=== PATIENT | female | born 1955 | race Caucasian/White ===

== ENCOUNTER 2018-09-23 14:19 | Observation (INO) ==
--- NOTE | 2018-09-23 14:48 | ED ---
HPI General Chief Complaint: Chest Pain Stated Complaint: chest pain Time Seen by Provider: 09/23/18 14:37 Source: patient Mode of arrival: ambulatory Limitations: no limitations History of Present Illness HPI narrative: Patient comes in with jaw and neck pain associated with mild pressure of 45 minutes prior to arrival. Symptoms now gone. Patient had no nausea vomiting patient had no indigestion or shortness of breath. Patient has history of hypertension. But has no significant medical problems otherwise. No significant cardiac history in family. Related Data Home Medications Medication Instructions Recorded Confirmed Singulair 09/23/18 albuterol sulfate 09/23/18 losartan 100 mg PO DAILY 09/23/18 09/23/18 oxycodone-acetaminophen [Percocet] 1 tab PO Q6H PRN 09/23/18 09/23/18 pantoprazole [Protonix] 40 mg PO BID 09/23/18 09/23/18 Allergies Allergy/AdvReac Type Severity Reaction Status Date / Time Sulfa (Sulfonamide Allergy Severe Anaphylaxis Verified 09/23/18 14:27 Antibiotics) sertraline AdvReac Mild hands Verified 09/23/18 14:27 burning, ringing in the ear, couldn't sleep Review of Systems ROS: all other systems reviewed are negative [facility] Medical History Medical History History of Díaz's esophagus (Acute) History of arthritis (Acute) History of asthma (Acute) History of chronic back pain (Acute) History of hypertension (Acute) History of scoliosis (Acute) Surgical History Surgical History History of bunionectomy of right great toe (Acute) History of cardiac cath (Acute) History of discectomy (Acute) History of hernia repair (Acute) History of kyphoplasty (Acute) History of tonsillectomy and adenoidectomy (Acute) Social History Social History Substance History: No History of Abuse Second Hand Smoke Exposure: No Smoking Status: Never smoker How Often Do You Have a Drink Containing Alcohol: Never Recent Travel in [facility] within the Last 8 Weeks: No Recent Out of Country Travel within the Last 8 Weeks: No Immunization History Tetanus Immunization: <5 Years Exam Narrative Exam Narrative: GENERAL: Alert and oriented SKIN: Focused skin assessment warm/dry. HEAD: Atraumatic. Normocephalic. EYES: Pupils equal and round. No scleral icterus. No injection or drainage. ENT: No nasal bleeding or discharge. Mucous membranes pink and moist. NECK: Trachea midline. No JVD. CARDIOVASCULAR: Regular rate and rhythm. No murmur appreciated. RESPIRATORY: No accessory muscle use. Clear to auscultation. Breath sounds equal bilaterally. GASTROINTESTINAL: Abdomen soft, non-tender, nondistended. Hepatic and splenic margins not palpable. MUSCULOSKELETAL: No obvious deformities. No clubbing. No cyanosis. No edema. Course Initial Documented Vital Signs Temperature 98.1 F 09/23/18 14:23 Pulse Rate 90 09/23/18 14:23 Respiratory Rate 20 09/23/18 14:23 Blood Pressure 180/85 H 09/23/18 14:23 Pulse Oximetry 99 09/23/18 14:23 Last Documented Vital Signs Temperature 98.1 F 09/23/18 14:23 Pulse Rate 86 09/23/18 14:48 Respiratory Rate 16 09/23/18 14:48 Blood Pressure 150/83 H 09/23/18 14:48 Pulse Oximetry 100 09/23/18 14:48 Critical Care Time Critical Care Time: Yes Total Critical Care Time: 50 Attestation: Multiple evaluate re-evaluations with no change in status. Medical Decision Making MDM Narrative Medical decision making narrative: Patient comes in with jaw and neck pressure with slight tightness of chest. Symptoms lasted for 45 minutes just prior to arrival but resolves spontaneously on presentation. Patient has no signs or symptoms at present time patient had no nausea indigestion or shortness of breath. No additional radiation. No cardiac disease but patient has been treated for hypertension. No significant family history. Medical Screen Exam Complete: Yes Emergency Medical Condition: Yes Lab Data Result diagrams: 09/23/18 14:54 09/23/18 14:54 Lab Results 09/23/18 09/23/18 09/23/18 Range/Units 14:54 14:54 14:54 CBC w Diff Slide review pending WBC 8.7 (4.0-11.0) th/mm3 RBC 4.36 (4.00-5.30) mil/mm3 Hgb 8.6 L (11.6-15.3) gm/dL Hct 28.6 L (35.0-46.0) % MCV 65.5 L (80.0-100.0) fL MCH 19.8 L (27.0-34.0) pg MCHC 30.2 L (32.0-36.0) % RDW 17.7 H (11.6-17.2) % Plt Count 377 (150-450) th/mm3 MPV 8.1 (7.0-11.0) fL Neut % (Auto) 74.8 H (16.0-70.0) % Lymph % (Auto) 19.1 (9.0-44.0) % [place] % (Auto) 2.5 (0.0-8.0) % Eos % (Auto) 3.2 (0.0-4.0) % Baso % (Auto) 0.4 (0.0-2.0) % Neut # (Auto) 6.5 (1.8-7.7) th/mm3 Lymph # (Auto) 1.7 (1.0-4.8) th/mm3 [place] # (Auto) 0.2 (0.0-0.9) th/mm3 Eos # (Auto) 0.3 (0.0-0.4) th/mm3 Baso # (Auto) 0.0 (0.0-0.2) th/mm3 WBC Differential . Diff Scan Auto diff confirmed Differential Comment . Target Cells 1+ H (None) Ovalocytes 1+ H (None) Keratocytes Occ H (None) PT 9.7 L (9.8-11.6) sec INR 1.0 Ratio APTT 27.5 (23.4-31.7) sec Sodium 140 (136-145) meq/L Potassium 4.0 (3.5-5.1) meq/L Chloride 108 H (98-107) meq/L Carbon Dioxide 24.8 (21.0-32.0) meq/L Anion Gap 7 (5-15) meq/L BUN 14 (7-18) mg/dL Creatinine 0.91 (0.50-1.00) mg/dL Estimated GFR 62 L (>89) mL/min Random Glucose 102 (74-106) mg/dL Calcium 8.3 L (8.5-10.1) mg/dL Total Bilirubin 0.2 (0.2-1.0) mg/dL AST 22 (15-37) U/L ALT 20 (10-53) U/L Alkaline Phosphatase 77 (45-117) U/L Troponin I Less than 0.02 L (0.02-0.05) ng/mL Total Protein 7.0 (6.4-8.2) g/dL Albumin 3.5 (3.4-5.0) g/dL Imaging Data Radiologist's impression: Chest X-Ray 09/23/18 14:49 CONCLUSION: Negative for an acute process Discharge Plan Discharge Disposition Patient Disposition: ED Admit(ED Internal Use Only) Discharge Condition Condition: Stable Discharge Order Discharge Orders: ED Use Only Admit Order (Routine); Ordered 09/23/18 Ordered By: Raymond Rudolph Discharge Details Discharge Comment: Chest pain chest pain rule out CAD Physicians Team ED Provider: Raymond Rudolph Primary Care Provider: Amilcar Conklin Rxs /Orders / Referrals /Forms Prescriptions: No Action oxycodone-acetaminophen [Percocet] 10-325 mg Tablet 1 tab PO Q6H PRN (Reason: Pain) RF: 0 pantoprazole [Protonix] 40 mg Tablet,Delayed Release (Dr/Ec) 40 mg PO BID RF: 0 losartan 100 mg Tablet 100 mg PO DAILY RF: 0 Singulair RF: 0 albuterol sulfate RF: 0 Discharge Instructions Patient Printed Instructions: Chest Pain (ED) Status ED Status: With Doctor
[2018-09-23 15:05] LABS: Baso % (Auto) 0.4 % (0.0-2.0); Eos # (Auto) 0.3 th/mm3 (0.0-0.4); Eos % (Auto) 3.2 % (0.0-4.0); Hematocrit 28.6 % (35.0-46.0); Hemoglobin 8.6 gm/dL (11.6-15.3); Lymph # (Auto) 1.7 th/mm3 (1.0-4.8); Lymph % (Auto) 19.1 % (9.0-44.0); Mean Corpuscular Hemoglobin 19.8 pg (27.0-34.0); Mean Corpuscular Volume 65.5 fL (80.0-100.0); Mean Platelet Volume 8.1 fL (7.0-11.0); Mono # (Auto) 0.2 th/mm3 (0.0-0.9); Mono % (Auto) 2.5 % (0.0-8.0); Neut # (Auto) 6.5 th/mm3 (1.8-7.7); Neut % (Auto) 74.8 % (16.0-70.0); Platelet Count 377 th/mm3 (150-450); Red Blood Count 4.36 mil/mm3 (4.00-5.30); Red Cell Distribution Width 17.7 % (11.6-17.2); White Blood Count 8.7 th/mm3 (4.0-11.0)
[2018-09-23 15:06] LABS: Mean Corpuscular HGB Conc 30.2 % (32.0-36.0)
[2018-09-23 15:08] LABS: Chloride 108 meq/L (98-107); Sodium 140 meq/L (136-145)
[2018-09-23 15:11] LABS: Activated Partial Thrombo Time 27.5 sec (23.4-31.7); Calcium 8.3 mg/dL (8.5-10.1); Prothrombin Time 9.7 sec (9.8-11.6)
[2018-09-23 15:12] LABS: Albumin 3.5 g/dL (3.4-5.0); Anion Gap 7 meq/L (5-15); Blood Urea Nitrogen 14 mg/dL (7-18); Carbon Dioxide 24.8 meq/L (21.0-32.0); Glucose,Random 102 mg/dL (74-106)
[2018-09-23 15:15] LABS: Alanine Aminotransferase 20 U/L (10-53); Aspartate Aminotransferase 22 U/L (15-37); Glomerular Filtration Rate 62 mL/min (>89)
[2018-09-23 15:18] LABS: Alkaline Phosphatase 77 U/L (45-117)
[2018-09-23 15:31] LABS: Target Cells 1+
[2018-09-23 15:32] LABS: Ovalocytes 1+
--- NOTE | 2018-09-23 15:39 | XR ---
EXAM DATE: 09/23/2018 3:21 PM EST AGE/SEX: 63 years / Female INDICATIONS: . Chest discomfort. CLINICAL DATA: This is the patient's initial encounter. Patient reports that signs and symptoms have been present for 1 day and indicates a pain score of 0/10. MEDICAL/SURGICAL HISTORY: None. . Spinal stimulator. COMPARISON: [facility], CHEST SINGLE AP, 02/28/2012. . FINDINGS: PA and lateral views of the chest demonstrate the lungs to be symmetrically aerated without evidence of mass, infiltrate or effusion. The cardiomediastinal contours are unremarkable. Osseous structures are intact spinal stimulator evident.. CONCLUSION: Negative for an acute process Electronically signed by: Frankei Matthews MD 09/23/2018 3:37 PM EST
[2018-09-23] MEDS ORDERED: Morphine Inj 4 MG/ML Vial IV.PUSH PRN (15:55)
[2018-09-23] MEDS ORDERED: Acetaminophen 500 MG Tablet PO PRN (15:55)
[2018-09-23] MEDS ORDERED: Enoxaparin Inj 30 MG/0.3 ML Syringe SQ SCH (16:00)
[2018-09-23] MEDS ORDERED: oxyCODONE/Acetaminophen 10/325 Tablet PO PRN (16:03)
--- NOTE | 2018-09-23 16:48 | P.HP ---
History of Present Illness Primary Care Physician: Amilcar Conklin MD Chief Complaint: Mouth and jaw pain History of Present Illness: 63-year-old female with known history of hypertension, esophagitis, Díaz's esophagus, asthma, chronic back pain, chronic neck pain who presented to the hospital for evaluation of jaw pain. Patient states that she has been under a lot of stress lately in she was driving home from work today and she started developing pain in her back teeth and jaw and because of that she came to the emergency department for evaluation. Patient denies any anterior or left -sided chest discomfort. Does complain of neck and jaw pain without any nausea , vomiting, diaphoresis, shortness of breath, dyspnea, lightheadedness, dizziness. Patient denies any visual educator. Review of medical records does indicate that patient has had previous cardiac workups done in the chest pain center with stress test which were negative dating back over 10 years ago. Patient denies any recent cardiac workup. Patient states that she has been undergoing workup with her GI physician Dr. Johansen, about 1 month ago she underwent upper endoscopy for Díaz's esophagus. Patient was found to have dysplastic cells in is scheduled for ablation treatment in approximately 1 week. Patient states that she had colonoscopy done 2 years ago and was told that she has diverticulosis but otherwise unremarkable. During patient's workup she was found to have some mild abnormalities with EKG with mild ST depressions in lead V3, V4, V5. She was found to have anemia with hemoglobin 8.6, MCV also appears to be 65. Patient denies any use of any iron supplementation. He denies any abdominal discomfort, nausea, vomiting, hematochezia, melena, weakness, shortness of breath. It was recommended by the ER physician that the patient be observed in the hospital for further evaluation and management. - Diagnosis (1) Variant angina Review of Systems All other systems reviewed negative except as stated in HPI Ears, Nose, Mouth, and Throat: Reports facial pain (Jaw pain) PMFSH - History History Provided By: Patient - Medical History Medical History: Medical History (Last Reviewed 09/23/18 @ 16:48 by INOCENTE Kendall) History of Díaz's esophagus History of arthritis History of asthma History of chronic back pain History of hypertension History of scoliosis - Surgical History Surgical History: Surgical History (Last Reviewed 09/23/18 @ 16:48 by INOCENTE Kendall) History of bunionectomy of right great toe History of cardiac cath History of discectomy History of hernia repair History of kyphoplasty History of tonsillectomy and adenoidectomy - Family History Family History: Family History (Last Updated 09/23/18 @ 16:32 by INOCENTE Kendall) Mother Family history of heart disease - Tobacco History Second Hand Smoke Exposure: No Smoking Status: Never smoker - Alcohol History How Often Do You Have a Drink Containing Alcohol: Never - Substance Use History Substance History: No History of Abuse - Travel History Recent Travel in the [place] Within the Last 8 Weeks: No Recent Travel Out of the Country Within the Last 8 Weeks: No - Immunization History Tetanus Immunization: <5 Years Medications and Allergies Active Medications: Active Medications Acetaminophen (Tylenol) 500 mg PO Q4H PRN PRN Reason: HEADACHE Hydrocodone Bitart/Acetaminophen ([place] 7.5/325) 1 tab PO Q4H PRN PRN Reason: PAIN SCALE 1 TO 7 Albuterol (Duoneb Neb (Prn)) 1 ampul NEB Q6HR NEB PRN PRN Reason: SHORTNESS OF BREATH/WHEEZING Last Admin: 09/23/18 16:25 Dose: 1 ampul Aspirin (Aspirin) 325 mg PO DAILY [facility] Enoxaparin Sodium (Lovenox Inj) 30 mg SQ Q24H RONI Morphine Sulfate (Morphine Inj) 2 mg IV.PUSH Q4H PRN PRN Reason: PAIN SCALE 8 TO 10 Nitroglycerin (Nitrostat Sl) 0.4 mg SL Q5M PRN PRN Reason: CHEST PAIN Non-Formulary Medication (Singulair) 10 mg PO DAILY RONI Non-Formulary Medication (Losartan [Losartan]) 100 mg PO DAILY [facility] Ondansetron HCl (Zofran Inj) 4 mg IV.PUSH Q6H PRN PRN Reason: NAUSEA Oxycodone/Acetaminophen (Percocet 10/325 Mg) 1 tab PO Q6H PRN PRN Reason: Pain Pantoprazole Sodium (Protonix) 40 mg PO BID RONI Sodium Chloride (Ns Flush) 2 ml IV.FLUSH UNSCH PRN PRN Reason: FLUSH AFTER USING IV ACCESS Sodium Chloride (Ns Flush) 2 ml IV.FLUSH BID RONI Sodium Chloride (Ns Flush) 2 ml IV.FLUSH PRN PRN PRN Reason: FLUSH AFTER USING IV ACCESS Allergies Allergy/AdvReac Type Severity Reaction Status Date / Time Sulfa (Sulfonamide Allergy Severe Anaphylaxis Verified 09/23/18 14:27 Antibiotics) sertraline AdvReac Mild hands Verified 09/23/18 14:27 burning, ringing in the ear, couldn't sleep Home Medications Medication Instructions Recorded Confirmed Type Singulair 09/23/18 History albuterol sulfate 09/23/18 History losartan 100 mg PO DAILY 09/23/18 09/23/18 History oxycodone-acetaminophen [Percocet] 1 tab PO Q6H PRN 09/23/18 09/23/18 History pantoprazole [Protonix] 40 mg PO BID 09/23/18 09/23/18 History Exam Vital signs: Vital Signs 09/23/18 14:23 09/23/18 14:48 09/23/18 16:27 Temperature 98.1 F Pulse Rate 90 86 81 Respiratory Rate 20 16 16 Blood Pressure 180/85 H 150/83 H Pulse Oximetry 99 100 Intake & Output 09/22/18 09/23/18 09/23/18 18:59 06:59 18:59 Weight 103 kg Narrative: GENERAL: Well-developed, well-nourished, in no acute distress. alert and orientated HEENT: Head is normocephalic without any lesions or masses noted. Facial features are symmetric. Eyes: Pupils equal round reactive to light. Extraocular muscles are intact. Conjunctivae were clear. Oropharyngeal: Pharynx without any erythema edema. Tongue is midline without deviation. Buccal mucosa is moist without any masses or lesions. Dentition in poor repair NECK: Supple without any masses. Trachea midline no deviation. No JVD, no bruits are appreciated CARDIAC: Regular rhythm, regular rate. S1/S2 are heard. No murmurs gallops or rubs. LUNGS: Clear to auscultation bilaterally. No wheeze, rhonchi or rales. No use of accessory muscles on inspiration or expiration. ABDOMEN: Soft, nontender. Nondistended. Bowel sounds heard in all 4 quadrants. No organomegaly or masses. Negative rebound, negative guarding EXTREMITIES: No edema, pulses are equal bilaterally. No cyanosis or clubbing NEUROLOGY: Mood and affect appear appropriate. Cranial nerves II through XII grossly intact. Muscle strength 5/5 in upper and lower extremities bilaterally. Deep tendon reflexes are 2+ in upper and lower extremities bilaterally. Results - Labs CBC & Chem 7: 09/23/18 14:54 09/23/18 14:54 Labs: Laboratory Results - last 24 hr 09/23/18 09/23/18 09/23/18 14:54 14:54 14:54 CBC w Diff Slide review pending WBC 8.7 RBC 4.36 Hgb 8.6 L Hct 28.6 L MCV 65.5 L MCH 19.8 L MCHC 30.2 L RDW 17.7 H Plt Count 377 MPV 8.1 Neut % (Auto) 74.8 H Lymph % (Auto) 19.1 [place] % (Auto) 2.5 Eos % (Auto) 3.2 Baso % (Auto) 0.4 Neut # (Auto) 6.5 Lymph # (Auto) 1.7 [place] # (Auto) 0.2 Eos # (Auto) 0.3 Baso # (Auto) 0.0 WBC Differential . Diff Scan Auto diff confirmed Differential Comment . Target Cells 1+ H Ovalocytes 1+ H Keratocytes Occ H PT 9.7 L INR 1.0 APTT 27.5 Sodium 140 Potassium 4.0 Chloride 108 H Carbon Dioxide 24.8 Anion Gap 7 BUN 14 Creatinine 0.91 Estimated GFR 62 L Random Glucose 102 Calcium 8.3 L Total Bilirubin 0.2 AST 22 ALT 20 Alkaline Phosphatase 77 Troponin I Less than 0.02 L Total Protein 7.0 Albumin 3.5 - Imaging Impressions Chest X-Ray 09/23/18 14:49 CONCLUSION: Negative for an acute process Caprini VTE Risk Assessment Caprini VTE Risk Assessment: No/Low Risk (score <= 1) Caprini Risk Assessment Model: Point Value = 1 Point Value = 2 Point Value = 3 Point Value = 5 Age 41-60 Minor surgery BMI > 25 kg/m2 Swollen legs Varicose veins or History of unexplained or recurrent spontaneous Oral contraceptives or hormone replacement Sepsis (< 1 month) Serious lung disease, including pneumonia (< 1 month) Abnormal pulmonary function Acute myocardial infarction Congestive heart failure (< 1 month) History of inflammatory bowel disease Medical patient at bed rest Age 61-74 Arthroscopic surgery Major open surgery (> 45 min) Laparoscopic surgery (> 45 min) Malignancy Confined to bed (> 72 hours) Immobilizing plaster cast Central venous access Age >= 75 History of VTE Family history of VTE Factor V Leiden Prothrombin [id number] Lupus anticoagulant Anticardiolipin antibodies Elevated serum homocysteine Heparin-induced thrombocytopenia Other congenital or acquired thrombophilia Stroke (< 1 month) Elective arthroplasty Hip, pelvis, or leg fracture Acute spinal cord injury (< 1 month) Prophylaxis Regimen: Total Risk Factor Score Risk Level Prophylaxis Regimen 0-1 Low Early ambulation 2 Moderate Order ONE of the following: *Sequential Compression Device (SCD) *Heparin 5000 units SQ BID 3-4 Higher Order ONE of the following medications: *Heparin 5000 units SQ TID *Enoxaparin/Lovenox 40 mg SQ daily (WT < 150 kg, CrCl > 30 mL/min) *Enoxaparin/Lovenox 30 mg SQ daily (WT < 150 kg, CrCl > 10-29 mL/min) *Enoxaparin/Lovenox 30 mg SQ BID (WT < 150 kg, CrCl > 30 mL/min) AND/OR *Sequential Compression Device (SCD) 5 or more Highest Order ONE of the following medications: *Heparin 5000 units SQ TID (Preferred with Epidurals) *Enoxaparin/Lovenox 40 mg SQ daily (WT < 150 kg, CrCl > 30 mL/min) *Enoxaparin/Lovenox 30 mg SQ daily (WT < 150 kg, CrCl > 10-29 mL/min) *Enoxaparin/Lovenox 30 mg SQ BID (WT < 150 kg, CrCl > 30 mL/min) AND *Sequential Compression Device (SCD) Assessment and Plan - Assessment (1) Variant angina Code(s): I20.1 - Angina pectoris with documented spasm Status: Acute - Plan Jaw pain, possible angina variant -Patient with risk factors include age, hypertension, family history of heart disease -We will continue ruled the patient out for acute coronary event with serial cardiac enzymes and serial EKGs -Initial EKG is reviewed by myself which does indicate mild ST depressions noted in V3, V4, V5 -Anticipate pursuing myocardial perfusion study if patient ruled out for acute coronary event -Continue aspirin, [place], morphine for pain, nitroglycerin as needed -Continue monitor telemetry Anemia, unknown whether acute versus chronic -Laboratories do indicate microcytosis, patient also with history of esophagitis , Díaz's esophagus with dysplasia. 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 Awaiting response back Hypertension -Home medications have been continued Chronic back pain -Continue home medications Asthma -Continue home medications -Duo nebs as needed DVT prevention -Sequential compression devices, avoid chemical prophylaxis secondary to anemia
[2018-09-23 18:29] LABS: Hematocrit 27.5 % (35.0-46.0); Hemoglobin 8.3 gm/dL (11.6-15.3)
[2018-09-23 18:47] LABS: Creatine Kinase 101 U/L (26-192)
[2018-09-23 22:18] LABS: Troponin I 0.02 ng/mL (0.02-0.05)
[2018-09-24 00:21] LABS: Reticulocyte Percent 1.2 % (0.4-3.0)
[2018-09-24 00:25] LABS: % Iron Saturation 2.7 % (20-50); Folate 12.9 ng/mL (3.1-17.5)
[2018-09-24 02:02] LABS: Hematocrit 26.1 % (35.0-46.0); Hemoglobin 8.1 gm/dL (11.6-15.3)
[2018-09-24 07:28] LABS: Hematocrit 28.3 % (35.0-46.0); Hemoglobin 8.6 gm/dL (11.6-15.3)
[2018-09-24] MEDS ORDERED: Aspirin 325 MG Tablet PO SCH (09:00)
[2018-09-24] MEDS ORDERED: Montelukast 10 MG Tablet PO SCH (09:00)
--- NOTE | 2018-09-24 09:53 | P.PNIM ---
Subjective Interval history: 63-year-old female who is seen examined today for follow-up on jaw pain, anemia. Patient states that she is doing well. Denies any recurrent jaw pain. I did discuss with the patient that laboratory studies are indicating a chronic iron deficient anemia. We will start iron supplementation. Patient is in agreement with treatment plan. Anticipating stress test to be done today. Vital signs are stable. Patient remains afebrile. Physical Exam Vital signs: Vital Signs 09/23/18 14:23 09/23/18 14:30 09/23/18 14:48 Temperature 98.1 F Pulse Rate 90 82 86 Respiratory Rate 20 20 16 Blood Pressure 180/85 H 180/85 H 150/83 H Pulse Oximetry 99 98 100 09/23/18 15:15 09/23/18 16:19 09/23/18 16:27 Temperature Pulse Rate 76 87 81 Respiratory Rate 20 20 16 Blood Pressure 150/83 H 170/79 H Pulse Oximetry 99 97 09/23/18 17:33 09/23/18 18:04 09/23/18 20:00 Temperature 97.6 F 97.3 F L Pulse Rate 79 96 H 87 Respiratory Rate 18 20 Blood Pressure 156/94 H 133/65 Pulse Oximetry 97 96 09/23/18 20:10 09/24/18 00:00 09/24/18 00:30 Temperature 98.2 F Pulse Rate 67 68 77 Respiratory Rate 18 Blood Pressure 140/70 Pulse Oximetry 98 09/24/18 04:00 09/24/18 06:30 09/24/18 08:00 Temperature 97.2 F L 98.2 F Pulse Rate 75 59 L 72 Respiratory Rate 20 15 Blood Pressure 161/83 H 170/79 H Pulse Oximetry 100 100 09/24/18 09:11 Temperature Pulse Rate 73 Respiratory Rate Blood Pressure Pulse Oximetry Intake & Output 09/23/18 09/24/18 09/24/18 18:59 06:59 18:59 Intake Total 0 / 0 Output Total 200 / 200 Balance -200 / -200 Weight 97.8 kg 98 kg Intake: Oral 0 / 0 Output: Urine 200 / 200 Other: # Voids 1 3 Date of Last Bowel Movement 09/23/18 09/23/18 09/23/18 Weight On Admission 97.8 kg Narrative: GENERAL: Well-developed, well-nourished, in no acute distress. alert and orientated HEENT: Head is normocephalic without any lesions or masses noted. Facial features are symmetric. Eyes: Extraocular muscles are intact. Conjunctivae were clear. Dentition in poor repair NECK: Supple without any masses. Trachea midline no deviation. No JVD, CARDIAC: Regular rhythm, regular rate. S1/S2 are heard. No murmurs gallops or rubs. LUNGS: Clear to auscultation bilaterally. No wheeze, rhonchi or rales. No use of accessory muscles on inspiration or expiration. ABDOMEN: Soft, nontender. Nondistended. Bowel sounds heard in all 4 quadrants. No organomegaly or masses. Negative rebound, negative guarding EXTREMITIES: No edema, pulses are equal bilaterally. No cyanosis or clubbing NEUROLOGY: Mood and affect appear appropriate. Cranial nerves II through XII grossly intact. Moving all extremities, speech is clear Results - Labs CBC & Chem 7: 09/24/18 07:20 09/23/18 14:54 Laboratory Results - last 24 hr 09/23/18 09/23/18 09/23/18 14:54 14:54 14:54 CBC w Diff Slide review pending WBC 8.7 RBC 4.36 Hgb 8.6 L Hct 28.6 L MCV 65.5 L MCH 19.8 L MCHC 30.2 L RDW 17.7 H Plt Count 377 MPV 8.1 Neut % (Auto) 74.8 H Lymph % (Auto) 19.1 Storey % (Auto) 2.5 Eos % (Auto) 3.2 Baso % (Auto) 0.4 Neut # (Auto) 6.5 Lymph # (Auto) 1.7 Storey # (Auto) 0.2 Eos # (Auto) 0.3 Baso # (Auto) 0.0 WBC Differential . Diff Scan Auto diff confirmed Differential Comment . Target Cells 1+ H Ovalocytes 1+ H Keratocytes Occ H Retic Count Absolute Retic Haptoglobin PT 9.7 L INR 1.0 APTT 27.5 Sodium 140 Potassium 4.0 Chloride 108 H Carbon Dioxide 24.8 Anion Gap 7 BUN 14 Creatinine 0.91 Estimated GFR 62 L Random Glucose 102 Calcium 8.3 L Iron TIBC % Saturation Ferritin Total Bilirubin 0.2 AST 22 ALT 20 Alkaline Phosphatase 77 Lactate Dehydrogenase Total Creatine Kinase Troponin I Less than 0.02 L Total Protein 7.0 Albumin 3.5 Vitamin B12 Folate 09/23/18 09/23/18 09/23/18 18:16 18:16 18:16 CBC w Diff WBC RBC Hgb Hct MCV MCH MCHC RDW Plt Count MPV Neut % (Auto) Lymph % (Auto) Storey % (Auto) Eos % (Auto) Baso % (Auto) Neut # (Auto) Lymph # (Auto) Storey # (Auto) Eos # (Auto) Baso # (Auto) WBC Differential Diff Scan Differential Comment Target Cells Ovalocytes Keratocytes Retic Count 1.2 Absolute Retic 49.0 Haptoglobin 159 PT INR APTT Sodium Potassium Chloride Carbon Dioxide Anion Gap BUN Creatinine Estimated GFR Random Glucose Calcium Iron 13 L TIBC 475 H % Saturation 2.7 L Ferritin 4 L Total Bilirubin AST ALT Alkaline Phosphatase Lactate Dehydrogenase 227 Total Creatine Kinase 101 Troponin I Less than 0.02 L Total Protein Albumin Vitamin B12 891 Folate 12.9 09/23/18 09/23/18 09/24/18 18:16 21:14 01:45 CBC w Diff WBC RBC Hgb 8.3 L 8.1 L Hct 27.5 L 26.1 L MCV MCH MCHC RDW Plt Count MPV Neut % (Auto) Lymph % (Auto) Storey % (Auto) Eos % (Auto) Baso % (Auto) Neut # (Auto) Lymph # (Auto) Storey # (Auto) Eos # (Auto) Baso # (Auto) WBC Differential Diff Scan Differential Comment Target Cells Ovalocytes Keratocytes Retic Count Absolute Retic Haptoglobin PT INR APTT Sodium Potassium Chloride Carbon Dioxide Anion Gap BUN Creatinine Estimated GFR Random Glucose Calcium Iron TIBC % Saturation Ferritin Total Bilirubin AST ALT Alkaline Phosphatase Lactate Dehydrogenase Total Creatine Kinase 91 Troponin I 0.02 Total Protein Albumin Vitamin B12 Folate 09/24/18 07:20 CBC w Diff WBC RBC Hgb 8.6 L Hct 28.3 L MCV MCH MCHC RDW Plt Count MPV Neut % (Auto) Lymph % (Auto) Storey % (Auto) Eos % (Auto) Baso % (Auto) Neut # (Auto) Lymph # (Auto) Storey # (Auto) Eos # (Auto) Baso # (Auto) WBC Differential Diff Scan Differential Comment Target Cells Ovalocytes Keratocytes Retic Count Absolute Retic Haptoglobin PT INR APTT Sodium Potassium Chloride Carbon Dioxide Anion Gap BUN Creatinine Estimated GFR Random Glucose Calcium Iron TIBC % Saturation Ferritin Total Bilirubin AST ALT Alkaline Phosphatase Lactate Dehydrogenase Total Creatine Kinase Troponin I Total Protein Albumin Vitamin B12 Folate - Imaging Impressions Chest X-Ray 09/23/18 14:49 CONCLUSION: Negative for an acute process Assessment and Plan - Assessment (1) Variant angina Code(s): I20.1 - Angina pectoris with documented spasm Status: Acute - Plan Jaw pain, possible angina variant -Patient with risk factors include age, hypertension, family history of heart disease -Patient has been ruled out for acute coronary event with serial cardiac enzymes are negative -Serial EKGs reviewed by myself and indicate a mild ST depressions in V3, V4, V5 and initial EKG but improved with subsequent EKGs -Myocardial perfusion study was performed and indicated suspected mild ischemia but with low risk -Discussed with cardiology who indicated, given those results and workup patient would benefit from outpatient cardiology monitoring and repeat examination in 1 year. -Continue aspirin, Linwood, morphine for pain, nitroglycerin as needed -Continue monitor telemetry Anemia, unknown whether acute versus chronic -Laboratories do indicate microcytosis, patient also with history of esophagitis , Díaz's esophagus with dysplasia. Patient with upcoming endoscopy for ablation -Further laboratory studies do indicate iron deficient anemia -Continue monitor hemoglobin hematocrit every 6 hours, hemoglobin is remained stable -Start ferrous sulfate twice daily Hypertension -Home medications have been continued Chronic back pain -Continue home medications Asthma -Continue home medications -Duo nebs as needed DVT prevention -Sequential compression devices, avoid chemical prophylaxis secondary to anemia Discussed Condition With: Discussed with patient that he will need to have follow-up with her primary medical doctor to establish with cardiology for regular monitoring and management. Discharge Planning: Discharge home in stable condition Activity: Ad karina. Diet: Healthy heart diet Medication per medication reconciliation Follow-up with primary medical doctor in 1 week
[2018-09-24] MEDS ORDERED: Ferrous Sulfate 325 MG Tablet PO SCH (10:00)
[2018-09-24] MEDS ORDERED: Regadenoson Inj 0.4 MG/5 ML Syringe IV.PUSH ONE (10:26)
--- NOTE | 2018-09-24 11:42 | TR ---
Date Performed: 09/24/2018 Time Performed: 10:57:41 DOCTOR: John Heath DRUG LIST: CLINICAL HISTORY: REASON FOR TEST: Chest pain REASON FOR ENDING: OBSERVATION: CONCLUSION: Lexiscan stress test was performed under standard four minute protocol. Radionuclide was injected one minute prior to ending the test. mild ST changes were noted but no electrocardiogra phic abormalities were present to diagnose ischemia. Nuclear imaging and interpretation are pending. COMMENTS:
--- NOTE | 2018-09-24 11:47 | NM ---
EXAM DATE: 09/24/2018 11:43 AM EST AGE/SEX: 63 years / Female INDICATIONS:Angina. . Jaw and neck pain associated with mild chest pressure. CLINICAL DATA: This is the patient's initial encounter. Patient reports that signs and symptoms have been present for 1 day and indicates a pain score of 2/10. MEDICAL/SURGICAL HISTORY: Hypertension. Díaz's esophagus. Scoliosis. Asthma Tonsillectomy. Hernia repair. Discectomy. Kyphoplasty. COMPARISON: No prior exams available for comparison. DOSE: 8.4 mCi Tc 99m Myoview at rest 27.1 mCi [id number] at stress 0.4 mg Lexiscan STRESS SYMPTOMS: Dyspnea, headache and nausea. EJECTION FRACTION: 69 % TECHNIQUE: The patient underwent pharmacologic stress with infusion of prescribed dose. Continuous ECG tracing was monitored during stress. Gated SPECT imaging was performed after stress and conventi onal SPECT imaging was performed at rest. The examination was performed on a SPECT/CT scanner, both attenuation and non-corrected datasets were reviewed. FINDINGS: Distribution: The maximum perfused segment at stress is in the septal wall. Perfusion Study: There is decreased activity at the apex and the apical and mid portions of the ant erior wall on the stress images. Gated Study: There are intact wall motion and wall thickening without hypokinetic or dyskinetic segm ents. The ejection fraction is calculated at 69%. RISK CATEGORY: Low (<1% Annual Motality Rate) CONCLUSION: 1. Suspected mild ischemia at the apical and mid portions of the anterior wall and at the apex. 2. Normal wall motion and ejection fraction. Electronically signed by: Khadar Garcia MD 09/24/2018 11:46 AM EST
--- NOTE | 2018-09-24 17:26 | ECG ---
Date Performed: 09/23/2018 Time Performed: 21:08:13 PTAGE: 63 years EKG: Sinus rhythm NORMAL ECG PREVIOUS TRACING : 09/23/2018 18.05 Since the previous tracing, no significant change noted DOCTOR: Silvina Dial Interpretating Date/Time 09/24/2018 17:24:00
--- NOTE | 2018-09-24 17:33 | ECG ---
Date Performed: 09/23/2018 Time Performed: 14:23:56 PTAGE: 63 years EKG: Sinus rhythm POSSIBLE LEFT ATRIAL ENLARGEMENT MODERATE ST DEPRESSION Compared to previous tracing, the inferolate ral ST segment changes are new. Clinical correlation is recommended ABNORMAL ECG PREVIOUS TRACING : 02/28/2012 13.28 DOCTOR: Silvina Dial Interpretating Date/Time 09/24/2018 17:32:02
--- NOTE | 2018-09-24 17:34 | ECG ---
Date Performed: 09/23/2018 Time Performed: 15:52:24 PTAGE: 63 years EKG: Sinus rhythm Compared to previous tracing, the inferolateral ST changes have resolved. This suggests reversible m yocardial ischemia. Clinical correlation is recommended NORMAL ECG PREVIOUS TRACING : 09/23/2018 14.23 DOCTOR: Silvina Dial Interpretating Date/Time 09/24/2018 17:32:39
--- NOTE | 2018-09-24 17:36 | ECG ---
Date Performed: 09/23/2018 Time Performed: 18:05:11 PTAGE: 63 years EKG: Sinus rhythm MINIMAL J POINT DEPRESSION LATERALLY SEPTAL T WAVE CHANGES ARE NONSPECIFIC Since the previous tracin g, no significant change noted ABNORMAL ECG PREVIOUS TRACING : 09/23/2018 15.52 DOCTOR: Silvina Dial Interpretating Date/Time 09/24/2018 17:33:50
== END 2018-09-24 14:06 | disposition home or self-care (01) ==
LOC: PHEDA 14:19 → PHED 14:19 → PH3 16:55
PROVIDERS: ADMIT Hospitalist; ATTEND Hospitalist
DX: M54.9 Dorsalgia, unspecified; G89.29 Other chronic pain; R94.31 Abnormal electrocardiogram [ECG] [EKG]; J45.909 Unspecified asthma, uncomplicated; D50.9 Iron deficiency anemia, unspecified; I20.1 Angina pectoris with documented spasm; I10 Essential (primary) hypertension; Z82.49 Family history of ischemic heart disease and other diseases of the circulatory system; Z88.2 Allergy status to sulfonamides; K22.719 Barrett's esophagus with dysplasia, unspecified